=== PATIENT | male | born 1975 | race Caucasian/White ===

== ENCOUNTER 2021-08-17 21:41 | Inpatient (IN) | payer MEDICAID, SELFPAY ==
[2021-08-17 21:48] VITALS: BP 136/98; PULSE 94; RESP 18; TEMP 36.6; O2SAT 98
[2021-08-17 21:49] VITALS: BMI 26.8
[2021-08-17 22:00] VITALS: BP 136/98; PULSE 94; RESP 18; TEMP 36.6; O2SAT 98
[2021-08-18] MEDS: trazodone 50 mg Tablet PO
--- NOTE | 2021-08-18 00:54 | PC.NURSE ---
46 Y/O MALE, DIRECT ADMIT FROM [facility]. ARRIVED TO ED POV AND PRESENTED FOR EVALUATION OF SI/ [T REPORTS THAT HE HAS BEEN OFF MEDS FOR 3 DAYS, STATING THAT HE HAS BEEN UNABLE TO GET HIS MEDS SINCE THE FRIEND WHO HE NORMALLY LIVES WITH IS OUT OF TOWN. HE STATES THAT HE BEGAN EXPERIENCING A DESIRE TO HURT SELF BUT DOES NOT HAVE A PLAN. STATED THAT HE IS VERY ANXIOUS AND DOES NOT TRUST SELF AND DOES NOT WANT TO END UP THE SAME WAY HE IS. DENIES ETOH, BUT STATES THAT HE DID HEROIN DAY BEFORE GOING TO ER BECAUSE HE DIDN'T WANT TO FEEL . UPON ARRIVAL TO NPU WAS COOPERATIVE, ANXIOUS ABOUT MEDICATIONS BEING RESUMED. THOUGHT PROCESS CLEAR. WAS DISCHARGED FROM [facility] RECENTLY. UDS WAS NEGATIVE.
[2021-08-18 06:00] VITALS: RESP 17
[2021-08-18] MEDS: nicotine 2 mg Gum BUCCAL ×3 (08:07→19:01)
[2021-08-18] MEDS: buPROPion XL (24 HR) 300 mg Tablet PO (08:07)
[2021-08-18] MEDS: OLANZapine 5 mg ODT PO ×3 (08:07→16:52)
--- NOTE | 2021-08-18 09:19 | PC.NURSE ---
AGRESSIVE AND AGITATED THIS AM. UPSET DUE TO NOT GETTING HIS SUBUTEX. EXPLAINED TO PT THIS RN WOULD CALL PHARMACY AND VERIFY MEDICATIONS. CONTINUED TO GET MAD SLAM DOOR AND YELL, SHUT THE DOOR YOU FUCKING BITCH. ATTEMPTED TO VERBALLY REDIRECT WITH LITTLE EFFECT. DID LAY DOWN IN ROOM. PT IS DISTURBING TO ROOM MATE AND ROOM MATE HAS REQUESTED TO GET ANOTHER ROOM. PT EXPLOSIVE, AND IMPULSIVE.
--- NOTE | 2021-08-18 09:20 | PC.NURSE ---
SPOKE WITH [facility] [place]. THEY VERIFY PT DOES RECEIVE SUBUTEX 8 MG BID. PRESCRIBED BY [address]. HARLEY. PHARMACY STATE HE RECEIVED 14 TABS ON THE July AND HAS 3 REFILLS.
[2021-08-18] MEDS: ibuprofen 600 mg Tablet PO ×3 (11:45→19:01)
[2021-08-18 14:00] VITALS: BP 135/74; PULSE 68; RESP 18; TEMP 36.9; O2SAT 98
--- NOTE | 2021-08-18 14:43 | P.NPUHP_ITS ---
Providers/Chief Complaint Admitting Physician: Praveen Weber MD Chief Complaint: SI HPI NPU History of Present Illness Kelton Hernandez is a 46 year old male who presented to the outside hospital endorsing suicidality and active addiction. He was transferred to [facility] and was admitted to the neuropsychiatric unit for definitive treatment of those issues. He presents today reporting that he was high and had overdosed leading to this hospitalization; he reports he has been hospitalized maybe five times, one time as a kid and the last time was a couple weeks ago. He reports that he is supposed to have outpatient services at [facility], and he was supposed to have his suboxone/Subutex at [place]. He reports that he does not have insurance and so that has made it hard to be able to get his m edications. He reports he smokes about a pack of cigarettes a day, does not drink alcohol, and does have marijuana occasionally; he denies other drug use, at this time, except for when he is ?off the wagon? and there is opiate and methamphetamine use that has been problematic. He reports that he has been to a rehab two times, and the last time was probably twenty years ago. He had a DUI twenty some years ago. He denies any specific possession charges. He reports that problems for him started in his teens when he started having drug use. He reports that continued to escalate things in a negative fashion. He reports that ultimately he did have times where things got so bad that he had suicidal thoughts, but he denies ever having any suicide attempts. He denies self injurious behaviors. He reports that ultimately he had started trying to get himself back on track and had gone to get treatment a couple weeks ago, but he reports that he ran out of medication and then fell back into his old ways, and he is wanting to stop doing that. We discussed the risks, benefits, and alternatives of restarting his medications, however, we discussed that we needed confirmation with the Subutex and that he is currently getting it; he then reported that he was not sure if he would be taking the Seroquel or Wellbutrin because he did not know if he would be able to create a situation where he could afford it. PSYCHIATRIC HISTORY: As above. SUBSTANCE ABUSE HISTORY: As above. FAMILY HISTORY: He reports addiction and mental health issues on both sides of his family, but no clear suicide attempts or completions. 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 He reports that he has been diagnosed with hydrocephalus. He reports that he did learn to walk and talk and met his developmental milestones on time, and he reports that he did not require speech therapy, learning support, emotional support, or special education classes. PSYCHOSOCIAL HISTORY: He reports that his parents were together only a short time after he was born, and he has an older brother who is a product of that same union. He reports that he was adopted within the first year of his life and he said his childhood was good. He denied CYS involvement. He reports that he did have some traumas while in long term, and he reports that he did not have nightmares often, but he did endorse flashbacks, some intrusive thoughts, and some hyper vigilance. He did graduate from high school. He denies any additional training. He endorses being heterosexual, with the longest relationship being twenty years; he has never been officially . He has as a son who is about 22 years old but denies any kind of significant relationship with him. He has never been in the . He endorses being a Restorationist. He reports that he has not had great employment. He reports he was on disability but there was a doctor that was very demanding that he be able to reproduce some of his studies, including an MRI, and he could not get it done especially because he has metal in his head which does not allow for MRI?s, and so things have been bad from the standpoint of losing disability a couple of years ago. He reports that he has recently been living in a recovery house and he should be able to return there. LEGAL HISTORY: He has been to long term maybe a dozen times, and the longest time was about two years. MEDICAL HISTORY: He endorses having hydrocephalus. He has significant scarring and discoloration from needle track bradley all through his arms, tracking all through his veins on both arms, as well as pockmarks and different scars which are likely reflections of infectious processes. Meds NPU Home Medications Medication Instructions Recorded Confirmed Last Taken Type Seroquel 300 mg PO BEDTIME 08/17/21 08/17/21 Unknown History Subutex 8 mg PO BID 08/17/21 08/17/21 08/17/21 13:10 History 8 mg Wellbutrin XL 300 mg PO DAILY 08/17/21 08/17/21 08/17/21 13:10 History 300 mg Allergies Allergy/AdvReac Type Severity Reaction Status Date / Time cephalexin Allergy Unknown Verified 08/17/21 23:36 Cephalosporins Allergy Unknown Verified 08/17/21 23:36 ciprofloxacin Allergy Unknown Verified 08/17/21 23:36 haloperidol Allergy Unknown Verified 08/17/21 23:36 ketorolac Allergy Unknown Verified 08/17/21 23:36 levofloxacin Allergy Unknown Verified 08/17/21 23:36 metoclopramide Allergy Unknown Verified 08/17/21 23:36 Penicillins Allergy Unknown Verified 08/17/21 23:36 prochlorperazine Allergy Unknown Verified 08/17/21 23:36 promethazine Allergy Unknown Verified 08/17/21 23:36 Mental Status Exam MSE Comments: This is a diminutive, white male, with hospital scrubs on, with limited grooming and eye contact. No abnormal movements, except for mild psychomotor retardation and significant femoral retroversion or ?duck feet? noted with his gait. Somewhat cooperative with exam in moderate distress. Speech was mumbled and decreased rate and volume. Mood described as irritable; affect congruent. Thought process, organized. Thought content: patient denied suicidal or homicidal ideation, there were no delusions reported or noted, patient denied auditory or visual hallucinations. Attention, concentration, and memory appeared intact but none were formally tested. Alert and oriented times three. Insight and judgment are impaired. Impulse control is impaired. Vitals/I&O/Wt Last Vital Signs Temp 98.5 F 08/18/21 14:00 Pulse 68 08/18/21 14:00 Resp 18 08/18/21 14:00 BP 135/74 08/18/21 14:00 Pulse Ox 98 08/18/21 14:00 Weight last 48 hrs Weight 73.028 kg A&P Assessment and plan (1) Opioid use disorder, severe, dependence: Status: Acute (2) Methamphetamine abuse: Status: Acute (3) Opioid withdrawal: Status: Acute (4) Depression: Status: Acute (5) Anxiety: Status: Acute Plan This is a 46-year-old, white male, with addiction and suicidal thinking, who presents with some question about appropriate use of his medication and being out of medication, in opiate withdrawal. 1. Continue current medication. Will get confirmation of his Subutex/Suboxone situation and restart if appropriate, and he will decide whether he wants to restart the Seroquel and Wellbutrin. 2. Encourage individual, group, and milieu therapy. 3. Continue q-15 minute checks for safety. 4. Recommend sober living treatment at the highest level of care to which the patient is willing to commit. Involuntary Hold Information 96 Hour Hold: 96 Hour Involuntary Admission: No Attestations NPU Medical Necessity Statement*: Inpatient hospitalization is medically necessary and the clinically appropriate intervention, at this time. We will monitor medications and make changes as indicated. Patient will be in the hospital for over two midnights. Likely length of stay is 3-5 days. Coding Level of Care Code Acute Liner Assembler for Kennedi Mattson Diagnoses Opioid use disorder, severe, dependence F11.20 Methamphetamine abuse F15.10 Opioid withdrawal F11.23 Depression F32.A Anxiety F41.9
[2021-08-18] MEDS: quetiapine 300 mg Tablet PO ×2 (20:18)
[2021-08-18 21:24] VITALS: RESP 16
[2021-08-19 06:00] VITALS: RESP 19
[2021-08-19] MEDS: ibuprofen 600 mg Tablet PO ×2 (07:55→15:50)
[2021-08-19] MEDS: nicotine 21 mg Patch 1 PATCH TRANSDERMA (07:56)
[2021-08-19] MEDS: OLANZapine 5 mg ODT PO ×3 (07:56→20:13)
[2021-08-19] MEDS: buPROPion XL (24 HR) 300 mg Tablet PO (07:56)
[2021-08-19] MEDS: hyDROXYzine 25 mg Capsule 50 MG PO ×2 (07:56→15:48)
[2021-08-19 14:00] VITALS: BP 107/70; PULSE 114; RESP 17; TEMP 36.8; O2SAT 96
--- NOTE | 2021-08-19 17:16 | W.PM.NPUPNS ---
Subjective NPU Subjective: Patient presents today continuing to focus on his Suboxone/Subutex. We had significant difficulty trying to track down where in fact he is getting those medications. We explained to him the difficulty in managing that from an inpatient unit without an external provider. He has been taking his other medication as prescribed. He started requesting being discharged back to the facility that he is connected with. Social work has made arrangements for him to return but it is unclear whether they have weekend acceptance. We agreed we would work with the social work team to see when the soonest he could be discharged back to them would be. He reports he is eating and sleeping better. Mental Status Exam MSE Comments: This is a diminutive, white male, with hospital scrubs on, with limited grooming and eye contact. No abnormal movements, except for mild psychomotor retardation and significant femoral retroversion or ?duck feet? noted with his gait. Somewhat cooperative with exam in mild distress. Speech was mumbled and decreased rate and volume. Mood described as a little better; affect congruent. Thought process, organized. Thought content: patient denied suicidal or homicidal ideation, there were no delusions reported or noted, patient denied auditory or visual hallucinations. Attention, concentration, and memory appeared intact but none were formally tested. Alert and oriented times three. Insight and judgment are impaired. Impulse control is impaired.? Vitals/I&O/Wt Last Vital Signs Temp 94.4 F L 08/19/21 21:12 Pulse 70 08/19/21 21:12 Resp 18 08/19/21 21:12 BP 131/75 08/19/21 21:12 Pulse Ox 97 08/19/21 21:12 A&P Assessment and plan (1) Anxiety: Status: Acute (2) Depression: Status: Acute (3) Opioid withdrawal: Status: Acute (4) Methamphetamine abuse: Status: Acute (5) Opioid use disorder, severe, dependence: Status: Acute Plan This is a 46-year-old, white male, with addiction and suicidal thinking, who presents with some question about appropriate use of his medication and being out of medication, in opiate withdrawal. 1. Continue current medication. Will get confirmation of his Subutex/Suboxone situation and restart if appropriate, and restared the Seroquel and Wellbutrin. 2. Encourage individual, group, and milieu therapy. 3. Continue q-15 minute checks for safety. 4. Recommend sober living treatment at the highest level of care to which the patient is willing to commit. Involuntary Hold Information 96 Hour Hold: 96 Hour Involuntary Admission: No Attestations NPU Medical Necessity Statement*: Inpatient hospitalization is medically necessary and the clinically appropriate intervention, at this time. We will monitor medications and make changes as indicated. Likely length of stay is 2-4 days. Coding Level of Care Code Acute Grounds Manager for [facility] Fwd Diagnoses Anxiety F41.9 Depression F32.A Opioid withdrawal F11.23 Methamphetamine abuse F15.10 Opioid use disorder, severe, dependence F11.20
[2021-08-19] MEDS: acetaminophen 325 mg Tablet 650 MG PO (18:02)
[2021-08-19] MEDS: trazodone 50 mg Tablet PO (20:13)
[2021-08-19] MEDS: quetiapine 300 mg Tablet PO (20:13)
[2021-08-19 21:12] VITALS: BP 131/75; PULSE 70; RESP 18; TEMP 34.7; O2SAT 97
[2021-08-19] MEDS: buprenorphine-naloxone 4-1 mg Film 2 EACH SUBLINGUAL (21:51)
[2021-08-20] MEDS: ibuprofen 600 mg Tablet PO ×3 (01:13→20:00)
[2021-08-20] MEDS: hyDROXYzine 25 mg Capsule 50 MG PO ×3 (01:13→20:02)
[2021-08-20] MEDS: acetaminophen 325 mg Tablet 650 MG PO ×2 (05:54→15:44)
[2021-08-20] MEDS: OLANZapine 5 mg ODT PO ×2 (05:54→15:41)
[2021-08-20 06:00] VITALS: BP 108/67; PULSE 90; RESP 16; TEMP 37; O2SAT 98
[2021-08-20] MEDS: buPROPion XL (24 HR) 300 mg Tablet PO (08:39)
[2021-08-20 14:00] VITALS: BP 121/81; PULSE 93; RESP 18; TEMP 37; O2SAT 97
--- NOTE | 2021-08-20 17:09 | P.NPUPN_ITS ---
Subjective NPU Subjective: Patient presents today continuing to be irritable and somewhat frustrated about things not happening on his timeline. We were able to get numbers off of his phone and make some calls to [facility]. 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 We discussed the likelihood of discharge in the next 48 hours. Mental Status Exam MSE Comments: This is a diminutive, white male, with hospital scrubs on, with limited grooming and eye contact. Somewhat abnormal head shape. No abnormal movements, except for mild psychomotor retardation and significant femoral retroversion or ?duck feet? noted with his gait. Somewhat cooperative with exam in mild distress. Speech was mumbled and decreased rate and volume. Mood described as a little better; affect congruent. Thought process, organized. Thought content: patient denied suicidal or homicidal ideation, there were no delusions reported or noted, patient denied auditory or visual hallucinations. Attention, concentration, and memory appeared intact but none were formally tested. Alert and oriented times three. Insight and judgment are limited. Impulse control is limited.? Vitals/I&O/Wt Last Vital Signs Temp 98.6 F 08/20/21 14:00 Pulse 93 08/20/21 14:00 Resp 18 08/20/21 14:00 BP 121/81 08/20/21 14:00 Pulse Ox 97 08/20/21 14:00 A&P Assessment and plan (1) Anxiety: Status: Acute (2) Depression: Status: Acute (3) Opioid withdrawal: Status: Acute (4) Methamphetamine abuse: Status: Acute (5) Opioid use disorder, severe, dependence: Status: Acute Plan 1. Continue current medication. We confirmed that he does have a 10 8 milligram Subutex tablets at the pharmacy and we restarted the Seroquel and Wellbutrin. 2. Encourage individual, group, and milieu therapy. 3. Continue q-15 minute checks for safety. 4. Recommend sober living treatment at the highest level of care to which the patient is willing to commit. 5. Possible discharge in the morning. Involuntary Hold Information 96 Hour Hold: 96 Hour Involuntary Admission: No Attestations NPU Medical Necessity Statement*: Inpatient hospitalization is medically necessary and the clinically appropriate intervention, at this time. We will monitor medications and make changes as indicated.? Likely length of stay is 1-3 days. Coding Level of Care Code Acute Logging Worker for g Fwd Diagnoses Anxiety F41.9 Depression F32.A Opioid withdrawal F11.23 Methamphetamine abuse F15.10 Opioid use disorder, severe, dependence F11.20
[2021-08-20] MEDS: quetiapine 300 mg Tablet PO (20:00)
[2021-08-20 20:24] VITALS: BP 118/79; PULSE 103; RESP 18; TEMP 36.9; O2SAT 97
--- NOTE | 2021-08-20 21:00 | PC.NURSE ---
This pt's MAR not allowing for pain reassessment, pt showing no s/s of pain at this time.
--- NOTE | 2021-08-20 21:11 | PC.NURSE ---
Pt requested green capsules for increased anxiety. when asked what was making him anxious, pt stated i don't have any opiates in me
[2021-08-21] MEDS: ibuprofen 600 mg Tablet PO ×2 (02:04→08:21)
[2021-08-21] MEDS: hyDROXYzine 25 mg Capsule 50 MG PO (02:04)
[2021-08-21 06:00] VITALS: RESP 18
[2021-08-21] MEDS: acetaminophen 325 mg Tablet 650 MG PO (07:41)
[2021-08-21] MEDS: buPROPion XL (24 HR) 300 mg Tablet PO (07:42)
[2021-08-21] MEDS: OLANZapine 5 mg ODT PO (07:44)
[2021-08-21] MEDS: nicotine 21 mg Patch 1 PATCH TRANSDERMA (08:27)
--- NOTE | 2021-08-21 10:39 | P.NPUDS_ITS ---
Diagnoses at Discharge Discharge Diagnosis (1) Anxiety: Status: Acute (2) Depression: Status: Acute (3) Opioid withdrawal: Status: Acute (4) Methamphetamine abuse: Status: Acute (5) Opioid use disorder, severe, dependence: Status: Acute Reason for Visit Reason for Visit: SI Brief History: History of Present Illness Kelton Hernandez is a 46 year old male who presented to the outside hospital endorsing suicidality and active addiction. He was transferred to [facility] and was admitted to the neuropsychiatric unit for definitive treatment of those issues. He presents today reporting that he was high and had overdosed leading to this hospitalization; he reports he has been hospitalized maybe five times, one time as a kid and the last time was a couple weeks ago. He reports that he is supposed to have outpatient services at [facility], and he was supposed to have his suboxone/Subutex at [place]. He reports that he does not have insurance and so that has made it hard to be able to get his medica tions. He reports he smokes about a pack of cigarettes a day, does not drink alcohol, and does have marijuana occasionally; he denies other drug use, at this time, except for when he is ?off the wagon? and there is opiate and methamphetamine use that has been problematic. He reports that he has been to a rehab two times, and the last time was probably twenty years ago. He had a DUI twenty some years ago. He denies any specific possession charges. He reports that problems for him started in his teens when he started having drug use. He reports that continued to escalate things in a negative fashion. He reports that ultimately he did have times where things got so bad that he had suicidal thoughts, but he denies ever having any suicide attempts. He denies self injurious behaviors. He reports that ultimately he had started trying to get himself back on track and had gone to get treatment a couple weeks ago, but he reports that he ran out of medication and then fell back into his old ways, and he is wanting to stop doing that. We discussed the risks, benefits, and alternatives of restarting his medications, however, we discussed that we needed confirmation with the Subutex and that he is currently getting it; he then reported that he was not sure if he would be taking the Seroquel or Wellbutrin because he did not know if he would be able to create a situation where he could afford it. PSYCHIATRIC HISTORY: As above. SUBSTANCE ABUSE HISTORY: As above.? FAMILY HISTORY: He reports addiction and mental health issues on both sides of his family, but no clear suicide attempts or completions. 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 He reports that he has been diagnosed with hydrocephalus. He reports that he did learn to walk and talk and met his developmental milestones on time, and he reports that he did not require speech therapy, learning support, emotional support, or special education classes. PSYCHOSOCIAL HISTORY: He reports that his parents were together only a short time after he was born, and he has an older brother who is a product of that same union. He reports that he was adopted within the first year of his life and he said his childhood was good. He denied CYS involvement. He reports that he did have some traumas while in care home, and he reports that he did not have nightmares often, but he did endors e flashbacks, some intrusive thoughts, and some hyper vigilance. He did graduate from high school. He denies any additional training. He endorses being heterosexual, with the longest relationship being twenty years; he has never been officially . He has as a son who is about 22 years old but denies any kind of significant relationship with him. He has never been in the . He endorses being a Nondenominational. He reports that he has not had great employment. He reports he was on disability but there was a doctor that was very demanding that he be able to reproduce some of his studies, including an MRI, and he could not get it done especially because he has metal in his head which does not allow for MRI?s, and so things have been bad from the standpoint of losing disability a couple of years ago. He reports that he has recently been living in a recovery house and he should be able to return there. LEGAL HISTORY: He has been to care home maybe a dozen times, and the longest time was about two years. MEDICAL HISTORY: He endorses having hydrocephalus. He has significant scarring and discoloration from needle track bradley all through his arms, tracking all through his veins on both arms, as well as pockmarks and different scars which are likely reflections of infectious processes. Hospital Course Hospital Course He very slowly acclimated to the individual, group and milieu therapies provided. He clearly has impulse control issues and struggled with the structure on the unit. Much of his focus was on trying to obtain some Subutex. We were able to work with the nursing team to identify that he had 10 more pills left at the pharmacy. His sober living facility welcomed him back and agreed that those 5 days worth of Subutex/10 pills will be sufficient for them to get him into a provider in the area. We restarted his other medications and he showed modest improvement. He was able to contract for safety outside of the hospital prior to discharge. At the outside hospital, patient had routine laboratory studies which were within normal limits except for few outliers. Additionally there was a general medical evaluation which was also within normal limits and revealed no new acute processes. Discharge Summary: At the time of discharge, he denied psychosis or lethality. Mood and anxiety were well managed. Patient endorsed a plan to avoid all drugs of abuse and follow-up with the aftercare recommendations of the treatment team. Patient was evaluated and deemed to be absent credible lethality, and had achieved the maximum benefit from an inpatient hospitalization, so was discharged. Involuntary Hold Information 96 Hour Hold: 96 Hour Involuntary Admission: No Mental Status Exam MSE Comments: This is a diminutive, white male, with hospital scrubs on, with limited grooming and eye contact.? Somewhat abnormal head shape.? No abnormal movements, except for mild psychomotor retardation and significant femoral retroversion or ?duck feet? noted with his gait. Somewhat cooperative with exam in no acute distress. Speech was mumbled and decreased rate and volume. Mood described as better; affect congruent. Thought process, organized. Thought content: patient denied suicidal or homicidal ideation, there were no delusions reported or noted, patient denied auditory or visual hallucinations. Attention, concentration, and memory appeared intact but none were formally tested. Alert and oriented times three. Insight and judgment are limited. Impulse control is limited.? Discharge Data Vitals: Last Vital Signs Temp 98.4 F 08/20/21 20:24 Pulse 103 H 08/20/21 20:24 Resp 18 08/21/21 06:00 BP 118/79 08/20/21 20:24 Pulse Ox 97 08/20/21 20:24 Discharge Plan Discharge Patient Disposition: Home Condition: Stable Prescriptions: New quetiapine 300 mg Tablet 300 mg PO BEDTIME 30 Days Qty: 30 1RF bupropion HCl 300 mg Tablet Extended Release 24 Hr 300 mg PO DAILY 30 Days Qty: 30 1RF Continued Subutex strip 8 mg PO BID 0RF Seroquel tablet 300 mg PO BEDTIME 30 Days Qty: 30 1RF Wellbutrin XL tablet 300 mg PO DAILY 30 Days Qty: 30 1RF Discharge Orders: Discharge Order (Routine); Ordered 08/21/21 Ordered By: Kashif Sterling Referrals: [facility] [Other] - 08/20/21 Discharge Diet: Regular Discharge Activity: Resume usual activity Patient Instructions: Generalized Anxiety Disorder, Methamphetamine Use Disorder (ED), Anxiety (ED), Opioid Safety Discharge Attestations NPU Time Spent in Discharge Care*: less than 30 min Specific Discharge Activities: Specific discharge activities: educating patient, discussing with case management coordinator/social workers/dc planners, documenting/other paperwork and evaluating patient/reviewing data Coding Level of Care Code Acute Chg FW DC note Diagnoses Anxiety F41.9 Depression F32.A Opioid withdrawal F11.23 Methamphetamine abuse F15.10 Opioid use disorder, severe, dependence F11.20
[2021-08-21 10:49] VITALS: BP 116/75; PULSE 96; RESP 17; TEMP 36.9; O2SAT 98
[2021-08-21 11:13] VITALS: BP 116/75; PULSE 96; RESP 17; TEMP 36.9; O2SAT 98
== END 2021-08-21 11:49 | disposition home or self-care (01) | DRG 897 ==
PROVIDERS: Admitting Provider Psychiatry & Neurology Psychiatry; Visit Provider Psychiatry & Neurology Psychiatry
DX: F11.23 Opioid dependence with withdrawal (principal); R45.851 Suicidal ideations; Z81.8 Family history of other mental and behavioral disorders; F15.10 Other stimulant abuse, uncomplicated; F32.A Depression, unspecified; F41.9 Anxiety disorder, unspecified
CPT/HCPCS: 97165; J0573